=== PATIENT | female | born 1990 | race Hispanic/Latino ===

== ENCOUNTER 2025-03-26 06:23 | Day surgery (SDC) | payer OTHER ==
[2025-03-26] MEDS: Ringers Lactate 1,000 ML IV ONE (06:48)
[2025-03-26] MEDS ORDERED: ONDANSETRON 4 MG/2 ML VIAL ONE (07:16)
[2025-03-26] MEDS ORDERED: MIDAZOLAM HCL 2 MG/2 ML INJ ONE (07:16)
[2025-03-26] MEDS ORDERED: FENTANYL CITR 100 MCG/2 ML ONE (07:16)
[2025-03-26] MEDS ORDERED: LIDOCAINE 1% MPF 5 ML VIAL ONE (07:16)
[2025-03-26] MEDS ORDERED: GENTAMICIN SULF 80 MG/2ML INJ ONE (07:18)
[2025-03-26] MEDS: GLUCAGON 1 MG/VIAL ONE (08:13)
[2025-03-26] MEDS ORDERED: CEFAZOLIN SODIUM 1 GM/VIAL ONE (08:50)
[2025-03-26] MEDS ORDERED: NA CHLORIDE 0.9% 50 ML ONE (08:50)
[2025-03-26] MEDS: CEFAZOLIN 1 GM in NA CHLORIDE 0.9% 50 ML IVPB ONE (08:53)
[2025-03-26 09:51] VITALS: BP 102/57; TEMP 97.6; O2SAT 100
--- NOTE | 2025-03-27 07:41 | RAD REPORT ---
EXAM: Fluoroscopy use, Fluoroscopy ERCP HISTORY: ERCP COMPARISON: None FINDINGS: A total of 4 images were sent to PACS, during a fluoroscopically guided ERCP. No radiologis t was involved in protocoling or performance of the study, and no radiologist was present for the duration of the procedure. No interpretation of the saved images will be provided. Total fluoroscopy time: 105 seconds. Cumulative dose: Not provided IMPRESSION: Documentation of fluoroscopy use as above.
== END 2025-03-26 09:48 | disposition home or self-care (01) ==
LOC: OR 06:23
PROVIDERS: ATTEND Internal Medicine Gastroenterology
PROC: 0FC98ZZ Extirpation of Matter from Common Bile Duct, Via Natural or Artificial Opening Endoscopic (ICD-10-PCS; 2025-03-26)
PROC: 0F798ZZ Dilation of Common Bile Duct, Via Natural or Artificial Opening Endoscopic (ICD-10-PCS; principal; 2025-03-26 07:30)
DX: K80.50 Calculus of bile duct without cholangitis or cholecystitis without obstruction (principal); R10.13 Epigastric pain; K80.20 Calculus of gallbladder without cholecystitis without obstruction; R93.3 Abnormal findings on diagnostic imaging of other parts of digestive tract; R10.12 Left upper quadrant pain; K85.90 Acute pancreatitis without necrosis or infection, unspecified; R94.8 Abnormal results of function studies of other organs and systems; K86.89 Other specified diseases of pancreas
CPT/HCPCS: 43262; 43264; 43277; 43273; 81025; J1610; J2704; J2003; J1580; J2250; J3010; J2405; J7120; J0690